=== PATIENT | female | born 1970 | race Caucasian/White ===

== ENCOUNTER 2020-04-16 06:59 | Inpatient (IN) | payer BC, OTHER ==
[~2020-04-16] VITALS: Ht 165.1 cm; Wt 112.0 kg
[~2020-04-16 06:59] MED LIST: BACITRACIN 50,000 UNIT ONE; BUPIVACAINE/PF 0.5% ONE; COLE1TAB2 PO; EPINEPHRINE 1 MG/ML, 1ML ONE; ESZO2TAB22 PO; GABA300C PO; LIDO35.46 TP; OXYC-307 PO; THROMBIN 5,000 UNIT VIAL TP ONE; TIZA2TAB4 PO
[2020-04-16] MEDS ORDERED: CHLORHEXIDINE 15 ML UDC MM ONE (08:00)
[2020-04-16] MEDS ORDERED: LIDOCAINE-MPF 1%, 2ML INFIL ONE (08:00)
[2020-04-16] MEDS ORDERED: LACTATED RINGERS 1,000 ML IV SCH (08:00)
[2020-04-16] MEDS ORDERED: THROMBIN 20,000 UNIT VIAL TP ONE (08:25)
[2020-04-16] MEDS ORDERED: MIDAZOLAM 1 MG/ML, 2ML ONE (09:10)
[2020-04-16] MEDS ORDERED: PROPOFOL 50 ML ONE ×3 (09:10→11:40)
[2020-04-16] MEDS ORDERED: FENTANYL PF 250 MCG/5ML ONE ×2 (09:11→10:35)
[2020-04-16] MEDS ORDERED: HYDROcodone/APAP 7.5-325MG/15ML UDC PO PRN (09:30)
[2020-04-16] MEDS ORDERED: PROMETHAZINE 25 MG/ML, 1ML IVPush PRN (09:30)
[2020-04-16] MEDS ORDERED: HALOPERIDOL 5 MG/ML IV PRN (09:30)
[2020-04-16] MEDS ORDERED: hydrALAzine 20 MG/ML, 1ML IV PRN (09:30)
[2020-04-16] MEDS ORDERED: LABETALOL 5MG/ML, 20ML IV PRN (09:30)
[2020-04-16] MEDS ORDERED: MEPERIDINE/PF 25MG/0.5ML IVPush PRN (09:30)
[2020-04-16] MEDS ORDERED: HYDROmorphone 1 MG/ML, 1ML INJ IVPush PRN (09:30)
[2020-04-16] MEDS ORDERED: DIPHENHYDRAMINE 50 MG/ML, 1ML IVPush PRN (09:30)
[2020-04-16] MEDS ORDERED: GLYCOPYRROLATE 0.2MG/1ML, 5ML ONE (11:52)
[2020-04-16] MEDS ORDERED: PROPOFOL 10 MG/ML, 20ML ONE (11:52)
[2020-04-16] MEDS ORDERED: DEXAMETHASONE 4 MG/ML, 1ML ONE (11:52)
[2020-04-16] MEDS ORDERED: NEOSTIGMINE 1 MG/ML, 10ML ONE (11:52)
[2020-04-16] MEDS ORDERED: CEFAZOLIN 1,000 MG ONE (11:52)
[2020-04-16] MEDS ORDERED: SUCCINYLCHOLINE 20 MG/ML, 10ML ONE (11:52)
[2020-04-16] MEDS ORDERED: ONDANSETRON 2MG/ML, 2ML ONE (11:52)
[2020-04-16] MEDS ORDERED: ROCURONIUM 10MG/ML,5ML ONE (11:52)
[2020-04-16] MEDS ORDERED: METHOCARBAMOL 1,000 MG in DEXTROSE 5% 100 ML IV ONE (12:30)
[2020-04-16] MEDS ORDERED: FENTANYL PF 100 MCG/2ML ONE ×2 (12:47→13:55)
[2020-04-16] MEDS: FENTANYL PF 100 MCG/2ML IV PRN ×3 (12:48→13:56)
[2020-04-16] MEDS ORDERED: HYDROcodone/APAP 7.5-325MG/15ML UDC ONE (13:18)
[2020-04-16] MEDS ORDERED: HYDROcodone/APAP 10/325 MG TABLET PO PRN (15:30)
[2020-04-16] MEDS ORDERED: HYDROcodone/APAP 5/325 TABLET PO PRN (15:30)
[2020-04-16] MEDS ORDERED: MAGNESIUM HYDROXIDE 8%, 30ML UDC PO PRN (15:30)
[2020-04-16] MEDS ORDERED: ACETAMINOPHEN 325 MG TABLET PO PRN (15:30)
[2020-04-16] MEDS ORDERED: DIPHENHYDRAMINE 25 MG CAPSULE PO PRN (15:30)
[2020-04-16] MEDS ORDERED: ONDANSETRON 2MG/ML, 2ML IV PRN (15:30)
[2020-04-16] MEDS ORDERED: morphine SULFATE 10 MG/ML, 1ML IV PRN (15:30)
[2020-04-16] MEDS ORDERED: PROMETHAZINE 25 MG/ML, 1ML IM PRN (15:30)
[2020-04-16] MEDS ORDERED: BISACODYL 10 MG SUPP PR PRN (15:30)
[2020-04-16] MEDS ORDERED: DIPHENHYDRAMINE 50 MG/ML, 1ML IM PRN (15:30)
[2020-04-16] MEDS ORDERED: ACETAMINOPHEN 650 MG SUPP PR PRN (15:30)
[2020-04-16] MEDS: DEXAMETHASONE 4 MG/ML, 1ML IV SCH ×2 (15:37→22:50)
[2020-04-16] MEDS: NS + 20MEQ KCL 1,000 ML IV SCH (15:37)
[2020-04-16] MEDS: OXYcodone IR 5MG TABLET PO PRN ×3 (16:36→22:54)
[2020-04-16] MEDS: CEFAZOLIN PMX 2GM/50ML 50 ML IVPB SCH (19:54)
[2020-04-16 19:56] VITALS: BP 139/80
[2020-04-16] MEDS: GABAPENTIN 300 MG CAPSULE PO SCH (20:56)
[2020-04-16] MEDS: METHOCARBAMOL 750 MG in DEXTROSE 5% 100 ML IV SCH (20:56)
[2020-04-16] MEDS: COLESTIPOL 1 GM TABLET PO SCH (20:56)
[2020-04-17 00:16] VITALS: BP 106/60
[2020-04-17] MEDS: OXYcodone IR 5MG TABLET PO PRN ×4 (01:58→13:45)
[2020-04-17] MEDS: NS + 20MEQ KCL 1,000 ML IV SCH ×2 (03:16→11:30)
[2020-04-17] MEDS: CEFAZOLIN PMX 2GM/50ML 50 ML IVPB SCH ×2 (03:30→11:00)
[2020-04-17 03:33] VITALS: BP 103/71
[2020-04-17] MEDS: DEXAMETHASONE 4 MG/ML, 1ML IV SCH ×2 (04:22→11:01)
[2020-04-17] MEDS: METHOCARBAMOL 750 MG in DEXTROSE 5% 100 ML IV SCH ×2 (04:23→12:52)
[2020-04-17 07:30] VITALS: BP 117/72
[2020-04-17] MEDS ORDERED: SENNA/DOCUSATE TABLET PO SCH (09:00)
[2020-04-17] MEDS: GABAPENTIN 300 MG CAPSULE PO SCH (09:09)
[2020-04-17] MEDS: COLESTIPOL 1 GM TABLET PO SCH (09:09)
[2020-04-17] MEDS ORDERED: MAGNESIUM HYDROXIDE 8%, 30ML UDC PO ONE (12:30)
[2020-04-17] MEDS ORDERED: METH4TAB2 PO (13:15)
[2020-04-17] MEDS ORDERED: METH750T87 PO (13:15)
[2020-04-18] MEDS ORDERED: METHOCARBAMOL 750 MG TABLET PO SCH (20:30)
== END 2020-04-17 14:20 | disposition home or self-care (01) | DRG 472 ==
LOC: OUT 06:59 → 4NE 14:43 → OUT 14:55 → DCLOUNGE 04-17 14:16
PROVIDERS: ADMIT Neurological Surgery; ATTEND Neurological Surgery
PROC: 0RB30ZZ Excision of Cervical Vertebral Disc, Open Approach (ICD-10-PCS; 2020-04-16)
PROC: 4A11X4G Monitoring of Peripheral Nervous Electrical Activity, Intraoperative, External Approach (ICD-10-PCS; 2020-04-16)
PROC: 0RG20A0 Fusion of 2 or more Cervical Vertebral Joints with Interbody Fusion Device, Anterior Approach, Anterior Column, Open Approach (ICD-10-PCS; principal; 2020-04-16 09:30)
DX: M48.02 Spinal stenosis, cervical region (principal); M47.12 Other spondylosis with myelopathy, cervical region; G95.29 Other cord compression; M54.12 Radiculopathy, cervical region
CPT/HCPCS: 36415; 72040; S0020; 86850; 86900; 95938; 95941; C1713; C1776; G0378; J0171; J0690; J1100; J2250; J2405; J2704; J2710; J3010; J3480; J0330; J2270; J2800; J7120